=== PATIENT | female | born 1995 | race Caucasian/White ===

== ENCOUNTER 2022-04-15 23:41 | Emergency (ER) | payer BC ==
--- NOTE | 2022-04-16 01:07 | XR ---
EXAMINATION TYPE: XR toes LT DATE OF EXAM: 04/16/2022 COMPARISON: NONE HISTORY: Trauma. Pain TECHNIQUE: 3 views FINDINGS: The great toe is intact. No fracture nor dislocation. There is elevation of the nail. Joint spaces are normal. IMPRESSION: No fracture seen. There is elevation of the nail of the big toe.
[2022-04-16 02:49] VITALS: BP 150/80; PULSE 64; RESP 19; TEMP 98.1
[2022-04-16] MEDS ORDERED: ACETAMINOPHEN TAB 500 MG TAB PO STA (02:50)
[2022-04-16] MEDS ORDERED: DIPH,PERTUS(ACELL)TETVAC-LF 0.5 ML VIAL IM ONE (03:09)
[2022-04-16] MEDS ORDERED: LIDOCAINE 1% INJ 10MG/ML (5 ML VIAL-PF) SQ STA (03:09)
--- NOTE | 2022-04-16 03:10 | ED ---
Lower Extremity Injury HPI - General Chief Complaint: Extremity Injury, Lower Stated Complaint: lt big toe injury Source: patient Mode of arrival: wheelchair - History of Present Illness Initial Comments: 's patient is 27-year-old woman who states that she injured the nail of the first toe on her left foot tonight while she was moving furniture. Patient denies any other injury. She is uncertain when her last tetanus shot was given. Patient declined analgesia at initial physical exam. MD Complaint: other (Toe injury) -: hour(s) Injury: Toes: Left Type of Injury: blunt Place: home Severity: mild Improves With: nothing Worsens With: weight bearing Context: direct blow - Related Data Allergies Allergy/AdvReac Type Severity Reaction Status Date / Time No Known Allergies Allergy Verified 04/16/22 02:49 Review of Systems ROS Statement: Those systems with pertinent positive or pertinent negative responses have been documented in the HPI. ROS Other: All systems not noted in ROS Statement are negative. Constitutional: Denies: fever Musculoskeletal: Reports: as per HPI, other (Toe injury) Skin: Reports: as per HPI, other (Nail avulsion) Neurological: Denies: numbness, paresthesias Past Medical History Past Medical History: No Reported History History of Any Multi-Drug Resistant Organisms: None Reported Past Surgical History: No Surgical Hx Reported Past Psychological History: Anxiety, Depression Smoking Status: Current some day smoker Past Alcohol Use History: None Reported Past Drug Use History: None Reported General Exam General appearance: alert, in no apparent distress Extremities exam: Present: normal inspection, full ROM, normal capillary refill. Absent: tenderness, pedal edema, joint swelling, calf tenderness Skin exam: Present: warm, dry, normal color, other (There is a nail avulsion left first toe. No other skin injury.). Absent: rash Course Vital Signs 04/16/22 02:45 Temperature 98.1 F Pulse Rate 64 Respiratory 19 Rate Blood Pressure 150/80 O2 Sat by Pulse 98 Oximetry Medical Decision Making - Medical Decision Making I provided a digital block to the great toe. While I was out of the room letting the block take effect, the patient reportedly reduced the nail herself, and then nursing applied a dressing. I discussed appropriate further care and follow-up. Disposition Clinical Impression: Avulsion of toenail of left foot Disposition: HOME SELF-CARE Condition: Good Instructions (If sedation given, give patient instructions): Nail Avulsion (ED) Is patient prescribed a controlled substance at d/c from ED?: No Referrals: Jessica Jenkins MD [Primary Care Provider] - 1-2 days
== END 2022-04-16 03:48 | disposition home or self-care (01) ==
LOC: EC 23:41
DX: S91.202A Unspecified open wound of left great toe with damage to nail, initial encounter (principal); F17.200 Nicotine dependence, unspecified, uncomplicated; W22.03XA Walked into furniture, initial encounter; Y92.009 Unspecified place in unspecified non-institutional (private) residence as the place of occurrence of the external cause
CPT/HCPCS: 64450; 90471; 90715; 99283